=== PATIENT | male | born 1965 | race Caucasian/White ===

== ENCOUNTER → 2021-08-23 | Outpatient (CLI) | payer BC ==
--- NOTE | 2021-08-23 15:16 | CT ---
EXAMINATION TYPE: CT angio chest DATE OF EXAM: 08/23/2021 2:57 PM COMPARISON: None HISTORY: SOB CT DLP: 781.7 mGycm Automated exposure control for dose reduction was used. CONTRAST: CTA scan of the thorax is performed with IV Contrast, patient injected with 80 mL of Isovue 370, pulm onary embolism protocol. Post processing was performed.. FINDINGS: There are moderate diffuse interstitial and groundglass densities scattered throughout both lungs sca ttered. There are scattered areas of traction bronchiectasis. There is no dense airspace consolidatio n. There is no pneumothorax. Great vessels chest are normal and there is no mediastinal, hilar or axillary adenopathy. There are no filling pulmonary artery circulation to suggest pulmonary emboli. The osseous structures are intact. The graft Limited scanning through the upper abdomen reveals no gr oss abnormality. IMPRESSION: 1. Diffuse interstitial density and groundglass densities scattered throughout both lungs with scatte red areas of mild bronchiectasis. 2. No evidence of pulmonary embolism.
== END | disposition home or self-care (01) ==
LOC: RADCTMAIN 14:14
PROVIDERS: ATTEND Internal Medicine
DX: J47.9 Bronchiectasis, uncomplicated (principal); R91.8 Other nonspecific abnormal finding of lung field
CPT/HCPCS: 71275; Q9967

== ENCOUNTER 2024-09-30 15:36 | Emergency (ER) | payer BC ==
[2024-09-30 16:07] VITALS: TEMP 98.1
[2024-09-30] MEDS: LIDOCAINE 1% INJ 10MG/ML (20 ML MDV) SQ ONE (16:42)
[2024-09-30] MEDS: DIPH,PERTUS(ACELL)TETVAC-LF 0.5 ML VIAL IM ONE (16:43)
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
--- NOTE | 2024-09-30 17:24 | XR ---
EXAMINATION TYPE: XR hand complete LT DATE OF EXAM: 09/30/2024 5:19 PM INDICATION: Patient age:Male; 59 years old; Reason for study: laceration; PHH. pain COMPARISON: None TECHNIQUE: Frontal, lateral and oblique views of the left hand were obtained. FINDINGS: Limited examination with ring overlying the fourth digit and watch overlying the wrist. No unexpected radiopaque foreign body. Normal alignment of the visualized joints. No acute osseous path ology is identified. Degenerative changes of the first MCP joint with joint space narrowing sclerosis and osteophytosis. No evidence of soft tissue swelling. IMPRESSION: 1. No acute osseous pathology. 2. No unexpected radiopaque foreign body. 3. Mild degenerative changes of the first MCP joint. [facility], , 09/30/2024 5:22 PM
[2024-09-30 17:52] VITALS: BP 134/87; PULSE 74; RESP 16
== END 2024-09-30 17:38 | disposition home or self-care (01) ==
LOC: EC 15:36
DX: S61.211A Laceration without foreign body of left index finger without damage to nail, initial encounter (principal); S61.213A Laceration without foreign body of left middle finger without damage to nail, initial encounter; Z91.040 Latex allergy status; Z23 Encounter for immunization; W26.9XXA Contact with unspecified sharp object(s), initial encounter
CPT/HCPCS: 73130; 90715; 99283; 12002; 90471; J2003